=== PATIENT | male | born 1980 | race Caucasian/White ===

== ENCOUNTER 2017-03-13 19:15 | Emergency (ER) | payer OTHER, BC ==
[2017-03-13 19:28] VITALS: BP 139/87
[2017-03-13] MEDS ORDERED: HYDROmorphone 1 MG/ML Syringe IVPUSH ONE (19:35)
[2017-03-13] MEDS ORDERED: LORazepam 2 MG/ML MDV IVPUSH ONE (19:35)
[2017-03-13] MEDS ORDERED: Sodium Chloride 0.9% 10 ML Syringe FLUSH PRN (19:35)
[2017-03-13] MEDS ORDERED: Midazolam 1 MG/ML 2 ML SDV IVPUSH ONE (20:10)
[2017-03-13] MEDS ORDERED: fentaNYL 100 MCG/2 ML SDV IVPUSH ONE (20:11)
--- NOTE | 2017-03-13 20:51 | EDM.PDOC ---
ED HPI Trauma - General Chief Complaint: Upper Extremity Injury/Pain Stated Complaint: INJURED RING FINGER LEFT HAND Time Seen by Provider: 03/13/17 19:30 Source: Reports: Patient, RN notes reviewed - History of Present Illness INITIAL COMMENTS - FREE TEXT/NARRATIVE: 36-year-old male comes in with left ring finger injury. He Either slipped or fell jamming his finger as he fell. It sounds like he hit the finger against the edge of his truck. He has pain, swelling, difficulty moving finger at PIP joint. No other injury from the fall. Mild numbness and tingling distal finger. Allergies/ADRs: Allergies No Known Allergies Allergy (Verified 07/21/16 07:08) Home Medications: Ambulatory Orders Dasatinib [Sprycel] 100 mg PO DAILY 03/13/17 [Confirmed 03/13/17] Past Medical History Musculoskeletal History: Reports: Other (see below) Other Musculoskeletal History: herniated disc in back Oncologic (Cancer) History: Reports: Leukemia - Past Surgical History GI Surgical History: Reports: Appendectomy Social & Family History - Family History Family Medical History: Noncontributory - Tobacco Use Smoking Status *Q: Unknown Ever Smoked - Caffeine Use Caffeine Use: Reports: None - Recreational Drug Use Recreational Drug Use: No Review of Systems - Review of Systems Review Of Systems: See Below Eyes: Reports: no symptoms Mouth/Throat: Reports: no symptoms Respiratory: Denies: Shortness of Breath, Pleuritic Chest Pain Cardiovascular: Denies: chest pain GI/Abdominal: Denies: Abdominal pain, Nausea, Vomiting Musculoskeletal: Reports: joint pain (PIP area of L ring finger) Neurological: Reports: Numbness (mild, distal L ring finger) Trauma Exam - Physical Exam Exam: See Below General Appearance: Reports: alert, moderate distress Head: Reports: atraumatic Ears: Reports: normal external exam Nose: Reports: normal inspection Throat/Mouth: Reports: Normal inspection Neck: Reports: full range of motion Respiratory Exam: Reports: no respiratory distress Extremities: Reports: bony-point tenderness (pain, swelling, tenderness PIP area of L ring finger. wearing a tungsten ring) Neurologic: Reports: no motor/sensory deficits, other (good sensation distal finger) Skin: Reports: Normal color, Warm/dry Course - Vital Signs Last Recorded V/S: Last Vital Signs Temp 99.7 F 03/13/17 19:22 Pulse 69 03/13/17 19:22 Resp 16 03/13/17 19:22 BP 139/87 03/13/17 19:22 Pulse Ox 100 03/13/17 19:22 - Orders/Labs/Meds Orders: Active Orders 24 hr Category Date Time Status Peripheral IV Care [RC] . DIRECTED Care 03/13/17 19:35 Active Fingers Fourth Digit Lt F3 [CR] Stat Exams 03/13/17 21:02 Taken Hand 2V Lt [CR] Stat Exams 03/13/17 19:49 Taken Sodium Chloride 0.9% [Saline Flush] Med 03/13/17 19:35 Active 10 ml FLUSH ASDIRECTED PRN Durable Medical Equipment for Discharge [DME for Oth 03/13/17 21:26 Ordered Discharge] [COMM] Stat Peripheral IV Insertion Adult [OM.PC] Stat Oth 03/13/17 19:35 Ordered Medication Orders Sodium Chloride (Saline Flush) 10 ml FLUSH ASDIRECTED PRN PRN Reason: Keep Vein Open Last Admin: 03/13/17 19:45 Dose: 10 ml Meds: Medications Generic Name Dose Route Start Last Admin Trade Name Freq PRN Reason Stop Dose Admin Sodium Chloride 10 ml 03/13/17 19:35 03/13/17 19:45 Saline Flush FLUSH 10 ml ASDIRECTED PRN Administration Keep Vein Open Discontinued Medications Generic Name Dose Route Start Last Admin Trade Name Freq PRN Reason Stop Dose Admin Fentanyl 100 mcg 03/13/17 20:11 03/13/17 20:21 Sublimaze IVPUSH 03/13/17 20:12 100 mcg ONETIME ONE Administration Hydromorphone HCl 1 mg 03/13/17 19:35 03/13/17 19:46 Dilaudid IVPUSH 03/13/17 19:36 1 mg ONETIME ONE Administration Lorazepam 1 mg 03/13/17 19:35 03/13/17 19:44 Ativan IVPUSH 03/13/17 19:36 1 mg ONETIME ONE Administration Midazolam HCl 2 mg 03/13/17 20:10 03/13/17 20:22 Versed 1 Mg/Ml IVPUSH 03/13/17 20:11 2 mg ONETIME ONE Administration - Re-Assessments/Exams Free Text/Narrative Re-Assessment/Exam: 03/13/17 21:06. Initial x-ray in showed apparent dislocation at the PIP joint. Unfortunately he is wearing a tungsten ring with too much swelling to get off initially. We initially gave Dilaudid and Ativan IV. We followed with 2 mg Versed IV and 100 mcg fentanyl IV. With that I was then able to very quickly reduce the dislocation. I then did wrap the distal finger with 2 Hines drains and also working with ice packs and elevation throughout this whole time to help get some swelling and edema down. I then was able to get the ring off intact. Patient tolerated all of this quite well. Distal nerve vasculature remains intact. Postreduction x-rays will be done at this time. 03/13/17 21:47 no fx, discharge instructions as documented Departure - Departure Time of Disposition: 21:30 Disposition: Home, Self-Care 01 Condition: good Clinical Impression: Closed dislocation finger, proximal interphalangeal joint, traumatic Qualifiers: Encounter type: initial encounter Qualified Code(s): S63.289A - Dislocation of proximal interphalangeal joint of unspecified finger, initial encounter Instructions: Finger or Thumb Dislocation, [id number] Referrals: Thierry Cooper MD [Primary Care Provider] - Forms: ED Department Discharge, Return to Work/School Form Additional Instructions: Finger splint as applied, continue with ice packs and elevation to get swelling down, he may return to work but is no usage or work with left hand recommended to Thursday, followup with occupational health nurse Thursday for recheck, further direction in terms of returning to work activity. Alternate Tylenol and ibuprofen as needed - My Orders Last 24 Hours: My Active Orders 03/13/17 19:35 Peripheral IV Care [RC] . DIRECTED Sodium Chloride 0.9% [Saline Flush] 10 ml FLUSH ASDIRECTED PRN Peripheral IV Insertion Adult [OM.PC] Stat 03/13/17 19:49 Hand 2V Lt [CR] Stat 03/13/17 21:02 Fingers Fourth Digit Lt F3 [CR] Stat 03/13/17 21:26 Durable Medical Equipment for Discharge [DME for Discharge] [COMM] Stat - Assessment/Plan Last 24 Hours: My Active Orders 03/13/17 19:35 Peripheral IV Care [RC] . DIRECTED Sodium Chloride 0.9% [Saline Flush] 10 ml FLUSH ASDIRECTED PRN Peripheral IV Insertion Adult [OM.PC] Stat 03/13/17 19:49 Hand 2V Lt [CR] Stat 03/13/17 21:02 Fingers Fourth Digit Lt F3 [CR] Stat 03/13/17 21:26 Durable Medical Equipment for Discharge [DME for Discharge] [COMM] Stat
--- NOTE | 2017-03-15 11:59 | CR ---
Left fourth finger: Four views of the left fourth finger were obtained. Soft tissue swelling seen around the PIP joint. Previous dislocation has been reduced. No acute fracture or other abnormality is seen. Impression: 1. Soft tissue swelling. Previous dislocation has been reduced. Diagnostic code #2
--- NOTE | 2017-03-15 11:59 | CR ---
Left hand: Single PA view of the left hand was obtained. Dislocation identified at the PIP joint of the fourth digit. No additional abnormality is appreciated. Impression: 1. Dislocated PIP joint of the fourth digit. Diagnostic code #3
== END 2017-03-13 22:01 | disposition home or self-care (01) ==
LOC: JD.ED 19:15
DX: S63.289A Dislocation of proximal interphalangeal joint of unspecified finger, initial encounter (principal); Z79.899 Other long term (current) drug therapy; W22.8XXA Striking against or struck by other objects, initial encounter
CPT/HCPCS: 26725; 73120; 73140; 96374; 96375; 99284; J1170; J2060; J2250; J3010; J7050; 26770